=== PATIENT | male | born 1985 | race Caucasian/White ===

== ENCOUNTER 2017-11-11 14:25 | Emergency (ER) | payer BC ==
[2017-11-11] MEDS ORDERED: LORazepam 2 MG/ML INJ IVP ONE (14:32)
[2017-11-11] MEDS ORDERED: NS 1,000 ML IV ONE (14:32)
--- NOTE | 2017-11-11 14:36 | EDPHY ---
H & P Stated Complaint: fall sz Source: Patient Exam Limitations: No limitations - Personal History Current Tetanus Diphtheria and Acellular Pertussis (TDAP): Unsure - Medical/Surgical History Hx Asthma: No Hx Chronic Respiratory Disease: No Hx Diabetes: No Hx Cardiac Disease: No Hx Renal Disease: No Hx Cirrhosis: No Hx Alcoholism: No Hx HIV/AIDS: No Hx Splenectomy or Spleen Trauma: No Other PMH: none - Family History Significant Family History: No pertinent family hx - Social History Smoking Status: Never smoked Alcohol Use: Sober Drug Use: None Time Seen by Provider: 11/11/17 14:33 HPI/ROS: CHIEF COMPLAINT: Seizure HISTORY OF PRESENT ILLNESS: The patient is a 32-year-old man who is visiting from [place] with no significant medical history. He was at work and had a bowel movement and then was found having a seizure. Paramedics states that he is postictal. He has a small laceration to his occiput and a small hematoma to his right forehead. He also has bite dueñas to his tongue. He was not incontinent. He states that he drinks occasionally but not daily or heavily. No stimulant medications or caffeine. No recreational drugs. He does not take any medications. He is now almost back to normal. His glucose is normal. REVIEW OF SYSTEMS: Constitutional: denies: chills, fever, recent illness, recent injury EENTM: denies: blurred vision, double vision, nose congestion Respiratory: denies: cough, shortness of breath Cardiac: denies: chest pain, irregular heart rate, lightheadedness, palpitations Gastrointestinal/Abdominal: denies: abdominal pain, diarrhea, nausea, vomiting, blood streaked stools Genitourinary: denies: dysuria, frequency, hematuria, pain Musculoskeletal: denies: joint pain, muscle pain Skin: denies: lesions, rash, jaundice, bruising Neurological: See HPI denies: headache, numbness, paresthesia, tingling, dizziness, weakness Hematologic/Lymphatic: denies: blood clots, easy bleeding, easy bruising Immunologic/allergic: denies: HIV/AIDS, transplant EXAM: GENERAL: Well-appearing, well-nourished and in no acute distress. HEAD: 2 cm crescent-shaped laceration to occiput, contusion to right forehead. EYES: Pupils equal round and reactive to light, extraocular movements intact, sclera anicteric, conjunctiva are normal. ENT: TMs normal, nares patent, lacerated right side tongue. Moist mucous membranes. NECK: Normal range of motion, supple without lymphadenopathy or JVD. LUNGS: Breath sounds clear to auscultation bilaterally and equal. No wheezes rales or rhonchi. HEART: Regular rate and rhythm without murmurs, rubs or gallops. ABDOMEN: Soft, nontender, normoactive bowel sounds. No guarding, no rebound. No masses appreciated. BACK: No CVA tenderness, no spinal tenderness, step-offs or deformities EXTREMITIES: Normal range of motion, no pitting or edema. No clubbing or cyanosis. NEUROLOGICAL: Cranial nerves II through XII grossly intact. Normal speech, normal gait. 5/5 strength, normal movement in all extremities, normal sensation PSYCH: Normal mood, normal affect. SKIN: Warm, dry, normal turgor, no visible rashes or lesions. (Greg Melendez) Constitutional: Initial Vital Signs Temperature (C) 36.7 C 11/11/17 14:27 Heart Rate 95 11/11/17 14:27 Respiratory Rate 14 11/11/17 14:27 Blood Pressure 154/91 H 11/11/17 14:27 O2 Sat (%) 99 11/11/17 14:27 O2 Delivery Mode Room Air Allergies/Adverse Reactions: No Known Allergies Allergy (Unverified 11/11/17 14:30) Home Medications: Medication Instructions Recorded NK [No Known Home Meds] 11/11/17 Medical Decision Making - Diagnostics Imaging: Discussed imaging studies w/ crew caller Radiologist Procedures: Procedure: Laceration repair. Verbal consent was obtained from the patient. The 2 cm scalp laceration was not anesthetized. The wound was irrigated according to protocol, draped and explored to its base. It was approximately 1/2 cm deep. There were no deep structures involved. No foreign body was identified. The wound was repaired with 2 clementina. The wound repair was simple without wound margin revisement or multiple flap alignment. The procedure was performed by myself. A dressing was then placed with sterile gauze and bacitracin. (Greg Melendez) ED Course/Re-evaluation: Patient is re-evaluated by me at 3:50 p.m.. The patient and I discussed imaging and lab results. We discussed treatment plan including criteria for return importance of follow-up and further evaluation. We discussed no driving or other dangerous activity until seen by neurologist. He expresses understanding and agreement Re-examination of patient's head shows scalp hematoma and clementina intact. There is also tongue bite. Otherwise patient is alert and conversational. ( Gurpreet Grant) No obvious abnormalities seen on CT scan. Awaiting official read. Care transferred to Dr. Gurpreet Grant. Lab work and readings pending. (Greg Melendez) Differential Diagnosis: Partial list of the Differential diagnosis considered include but were not limited to; medication reaction, syncope, seizure, hemorrhage, and although unlikely based on the history and physical exam, I also considered infection, assault. (Greg Melendez) - Data Points Laboratory Results: Laboratory Results 11/11/17 14:40 11/11/17 14:40 Medications Given: Discontinued Medications Sodium Chloride (Ns) 1,000 mls @ 0 mls/hr IV ONCE ONE; Wide Open PRN Reason: Protocol Stop: 11/11/17 14:33 Last Admin: 11/11/17 14:39 Dose: 1,000 mls Lorazepam (Ativan Injection) 0.5 mg IVP EDNOW ONE Stop: 11/11/17 14:33 Last Admin: 11/11/17 14:39 Dose: 0.5 mg Departure - Departure Disposition: Home, Routine, Self-Care Condition: Fair Instructions: Staple Care (ED), Generalized Tonic Clonic Seizures (ED) Additional Instructions: Have your clementina removed in 7 [address]. No [address] or other dangerous activity until you are seen by Neurology. Easy activity with regular meals and regular sleep. Return if you have another seizure or a worsening headache. Follow-up with a neurologist upon your return home to [place]. Referrals: Patient,NotPresent [Unknown] - As per Instructions Carlos Cabezas MD [Medical Doctor] - 2-3 days, call for appt.
[2017-11-11 15:20] LABS: PLATELET COUNT 319 10^3/uL (150-400)
[2017-11-11 15:28] LABS: INR 1.01 (0.83-1.16); PROTIME(PATIENT) 13.5 SEC (12.0-15.0)
[2017-11-11 16:39] VITALS: BP 115/73
== END 2017-11-11 16:37 | disposition home or self-care (01) ==
PROC: 0HQ0XZZ Repair Scalp Skin, External Approach (ICD-10-PCS; principal; 2017-11-11)
DX: S01.01XA Laceration without foreign body of scalp, initial encounter (principal); R56.9 Unspecified convulsions; E86.9 Volume depletion, unspecified; W19.XXXA Unspecified fall, initial encounter
CPT/HCPCS: 96374; J2060